=== PATIENT | female | born 1980 | race African-American/Black ===

== ENCOUNTER 2017-07-25 16:28 | Emergency (ER) | payer OTHER ==
[2017-07-25 16:37] VITALS: BP 123/76; PULSE 80; TEMP 98.1; BMI 40.3
[2017-07-25] MEDS ORDERED: KETOROLAC TROMETHAMINE 15 MG/ML VIAL IVPUSH ONE (17:38)
--- NOTE | 2017-07-25 17:56 | PDOC ---
Attending Attestation - Resident Resident Name: Jeff Szymanski - ED Attending Attestation I have performed the following: I have examined & evaluated the patient, The case was reviewed & discussed with the resident, I agree w/resident's findings & plan, Exceptions are as noted - HPI HPI: 07/25/17 17:55 Chronic Worsening Knee Pain - Physicial Exam PE: 07/25/17 17:55 VSS/NAD, Some Swelling - Medical Decision Making 07/25/17 17:[address] Szymanski's Assessment and Plan
[2017-07-25] MEDS ORDERED: KETOROLAC TROMETHAMINE 30 MG/1 ML VIAL ONE (18:03)
[2017-07-25 18:13] LABS: BASOPHIL 2.5 % (0-2.0); EOSINOPHIL 2.1 % (0-4.5); MCH 25.4 pg (25.7-33.7); MCHC 32.4 g/dl (32.0-36.0); MEAN CELL VOLUME 78.2 fl (80-96); NEUTROPHILS 51.7 % (42.8-82.8); PLATELET COUNT 269 K/MM3 (134-434); RDW 13.1 % (11.6-15.6); WHITE BLOOD COUNT 7.9 K/mm3 (4.0-10.8)
[2017-07-25 18:20] LABS: ALBUMIN 3.9 g/dl (3.5-5.0); ALK PHOS 56 U/L (32-92); ANION GAP 6 (8-16); BILIRUBIN,TOTAL 0.5 mg/dl (0.2-1.0); CALCIUM 9.2 mg/dl (8.4-10.2); CO2 24 mmol/L (22-28); CREATININE 0.8 mg/dl (0.6-1.3); GLUCOSE,RANDOM 93 mg/dl (74-106); SGOT/AST 20 U/L (10-42); SGPT/ALT 17 U/L (10-40); TOT PROT 7.2 g/dl (6.4-8.3); URIC ACID 4.5 mg/dl (2.6-7.2)
[2017-07-25 18:25] LABS: PH,URINE 5.5 (4.5-8); URINE APPEARANCE Clear; URINE BILIRUBIN Negative (NEGATIVE); URINE BLOOD Negative (NEGATIVE); URINE GLUCOSE (UA) Negative (NEGATIVE); URINE KETONE Negative (NEGATIVE); URINE LEUK ESTERASE Negative (NEGATIVE); URINE NITRITE Negative (NEGATIVE); URINE PROTEIN Negative (NEGATIVE); URINE UROBILINOGEN 0.2 (0.2-1.0)
[2017-07-25 18:26] LABS: URINE COLOR YELLOW
--- NOTE | 2017-07-25 18:41 | PDOC ---
History of Present Illness - General Chief Complaint: Pain Stated Complaint: LEFT KNEE PAIN Time Seen by Provider: 07/25/17 17:36 History Source: Patient Exam Limitations: No Limitations - History of Present Illness Initial Comments: 07/25/17 19:33 36F with no pmh and year long Left Knee pain and on/off swelling presents with persistent knee pain. Swelling episode last Monday. Has appointment with Dr. Marrufo on this coming Monday but pain upon weight bearing was too excruciating. Patient is 07/04 radiates up the back of her thigh and feels likes burning. Started a year ago when she fell a pop. Has pop + pain episode every month or so. Received an X-ray last month that was negative for fracture. No other complains. Ice and motrin seems to help reduce the swelling. No recent travel or long immobilizations. Not taking control. No history of DVT. 07/25/17 19:38 07/25/17 19:38 Leg not currently swollen Past History - Past Medical History Allergies/Adverse Reactions: Allergies Allergy/AdvReac Type Severity Reaction Status Date / Time nickel Allergy Verified 07/25/17 16:30 Home Medications: Ambulatory Orders Ascorbate Calcium [Vitamin C] 500 mg PO ASDIR 07/25/17 Biotin/Calcium Carbonate [Biotin 800 Mcg Tablet] 1 each PO DAILY 07/25/17 Calcium Carbonate [Calcium] 500 mg PO ASDIR 07/25/17 Multivitamins [Tab-A-Vit -] 1 tab PO DAILY 07/25/17 COPD: No - Surgical History Abdominal Surgery: (LIPOSUCTION) - Suicide/Smoking/Psychosocial Hx Smoking History: Never smoked Have you smoked in the past 12 months: No Hx Alcohol Use: No Drug/Substance Use Hx: No Substance Use Type: None Review of Systems - Review of Systems Able to Perform ROS?: Yes Is the patient limited Divehi proficient: No Constitutional: Yes: Symptoms Reported. No: Chills, Diaphoresis, Fever HEENTM: No: Symptoms Reported Respiratory: No: Cough, Orthopnea, Shortness of Breath Cardiac (ROS): No: Chest Pain, Edema, Irregular Heart Rate ABD/GI: No: Blood Streaked Bowels, Nausea, Poor Appetite Musculoskeletal: Yes: See HPI Neurological: No: Headache, Numbness, Paresthesia, Seizure, Tingling, Tremors, Dizziness Psychiatric: No: Anxiety, Depression, Frequent Crying Endocrine: No: Symptoms Reported All Other Systems: Reviewed and Negative *Physical Exam - Vital Signs Last Vital Signs Temp Pulse Resp BP Pulse Ox 98.1 F 80 18 123/76 99 07/25/17 16:28 07/25/17 16:28 07/25/17 16:28 07/25/17 16:28 07/25/17 16:28 - Physical Exam General Appearance: Yes: Nourished, Appropriately Dressed, Obese HEENT: positive: EOMI, WOLF, Normal ENT Inspection Neck: negative: Tender Respiratory/Chest: positive: Lungs Clear, Normal Breath Sounds. negative: Chest Tender Cardiovascular: positive: Regular Rhythm, Regular Rate, S1, S2 Gastrointestinal/Abdominal: positive: Normal Bowel Sounds, Protuberent. negative: Tender, Guarding, Tenderness, Spleenomegaly Musculoskeletal: positive: Decreased Range of Motion (of left knee. No swelling , no effusion, patella not mobile. Neatibve drawer signs. Pain increased during external rotation) Extremity: positive: Normal Capillary Refill, Normal Inspection, Normal Range of Motion. negative: Pedal Edema, Swelling Neurologic: positive: supervisor advice II-XII NML intact, Fully Oriented, Alert, Normal Mood/ Affect ED Treatment Course - LABORATORY CBC & Chemistry Diagram: 07/25/17 17:50 07/25/17 17:50 - ADDITIONAL ORDERS Additional order review: Laboratory Results 07/25/17 07/25/17 18:10 17:50 Sodium 133 L Potassium 4.3 Chloride 103 Carbon Dioxide 24 Anion Gap 6 L BUN 21 H Creatinine 0.8 Creat Clearance w eGFR > 60 Random Glucose 93 Uric Acid 4.5 Calcium 9.2 Total Bilirubin 0.5 AST 20 ALT 17 Alkaline Phosphatase 56 Total Protein 7.2 Albumin 3.9 Urine Color Yellow Urine Appearance Clear Urine pH 5.5 Ur Specific [place] 1.025 Urine Protein Negative Urine Glucose (UA) Negative Urine Ketones Negative Urine Blood Negative Urine Nitrite Negative Urine Bilirubin Negative Urine Urobilinogen 0.2 Ur Leukocyte Esterase Negative Urine HCG, Qual Negative 07/25/17 17:50 RBC 5.05 MCV 78.2 L MCHC 32.4 RDW 13.1 MPV 9.0 Neutrophils % 51.7 Lymphocytes % 36.3 Monocytes % 7.4 Eosinophils % 2.1 Basophils % 2.5 H - Medications Given in the ED: ED Medications Discontinued Medications Generic Name Dose Route Start Last Admin Trade Name Harleen PRN Reason Stop Dose Admin Ketorolac Tromethamine 15 mg 07/25/17 17:38 07/25/17 18:18 Toradol Injection - IVPUSH 07/25/17 17:39 15 mg ONCE ONE Administration Medical Decision Making - Medical Decision Making 07/25/17 19:43 36F present with chronic left knee pain. Patient to get MRI with dr. Marrufo on Monday. 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 ,. 07/25/17 19:45 D/C Told to come back to ED for any new, worsening or concerning symptoms. *DC/Admit/Observation/Transfer Diagnosis at time of Disposition: Knee pain, acute - Discharge Dispostion Disposition: HOME Condition at time of disposition: Stable Admit: No - Referrals Referrals: Samuel Marrufo MD [Staff Physician] - - Patient Instructions Printed Discharge Instructions: How to Use Crutches Additional Instructions: Follow up with apointment with dr. Marrufo. Come back to Ed for any new, concerning or worsening symptoms. Use crutches to avoid weight on left knee, motrin and ie to reduce occasional inflammation.
== END 2017-07-25 19:33 | disposition home or self-care (01) ==
LOC: FER 16:28
PROC: 3E0333Z Introduction of Anti-inflammatory into Peripheral Vein, Percutaneous Approach (ICD-10-PCS; principal; 2017-07-25)
DX: M25.562 Pain in left knee (principal)
CPT/HCPCS: 36415; 80053; 81003; 84550; 84703; 85025; 99283-25

== ENCOUNTER 2018-07-26 11:50 | Day surgery (SDC) | payer BC, OTHER ==
[2018-07-19 12:39] VITALS: BMI 34.9
[2018-07-26] MEDS ORDERED: MIDAZOLAM HCL 2 MG/2 ML SINGLE DOSE VIAL ONE (14:58)
[2018-07-26] MEDS ORDERED: BUPIVACAINE HCL/PF 2.5 MG/ML - 30 ML VIAL IJ ONE (15:11)
[2018-07-26] MEDS ORDERED: DEXAMETHASONE SOD PHOSPHATE 4 MG/1 ML VIAL ONE (15:23)
[2018-07-26] MEDS ORDERED: ONDANSETRON 4 MG/2 ML VIAL ONE ×2 (15:23→16:26)
[2018-07-26] MEDS ORDERED: ceFAZolin SODIUM 1 GM VIAL ONE (15:23)
--- NOTE | 2018-07-26 15:25 | OP ---
Operative Note - Note: Operative Date: 07/26/18 Pre-Operative Diagnosis: left knee MMT Operation: left knee arthroscopy. partial medial meniscectomy Post-Operative Diagnosis: Same as Pre-op Surgeon: Samuel Marrufo Anesthesiologist/RESIDENTIAL REAL ESTATE AGENT: Fortino Reyes Anesthesia: General Operative Report Dictated: Yes
[2018-07-26] MEDS ORDERED: BUPIVACAINE HCL/PF 0.25% (2.5MG/ML) 10 ML VIAL IJ ONE (15:42)
[2018-07-26] MEDS ORDERED: HYDROmorphone HCL/PF 1 MG/ML AMP ONE (16:03)
[2018-07-26] MEDS ORDERED: ONDANSETRON 4 MG/2 ML VIAL IVPUSH ONE ×2 (16:25)
[2018-07-26] MEDS ORDERED: oxyCODONE HCL 5 MG TABLET PO PRN ×2 (16:51)
[2018-07-26] MEDS ORDERED: PROMETHAZINE HCL 25 MG/1 ML VIAL IVPUSH PRN (16:51)
[2018-07-26] MEDS ORDERED: ONDANSETRON 4 MG/2 ML VIAL IVPUSH PRN (16:51)
[2018-07-26] MEDS ORDERED: oxyCODONE HCL 5 MG TABLET ONE (17:36)
[2018-07-26 17:44] VITALS: TEMP 98.5
[2018-07-26 19:02] VITALS: BP 133/80; PULSE 60
--- NOTE | 2018-08-02 15:34 | OP ---
DATE OF OPERATION: 07/26/2018 PREOPERATIVE DIAGNOSIS: Left knee medial meniscus tear. POSTOPERATIVE DIAGNOSIS: Left knee medial meniscus tear. PROCEDURE: Left knee arthroscopy with partial medial meniscectomy. SURGEON: Samuel Ling MD ANESTHESIA: General. POSTOPERATIVE CONDITION: Stable. COMPLICATIONS: None. INDICATIONS: This is a pleasant, 37-year-old female who has been suffering from medial knee pain. The patient had been treated extensively with nonoperative care and had failed to improve. Given the persistent swelling and pain, we decided to proceed with arthroscopic surgery. Prior to surgery, the risks, benefits, and alternatives were discussed in detail, including bleeding, infection, neurovascular injury, need for further surgery, postoperative pain and stiffness, and progression of osteoarthritis. We discussed medical risks, such as heart attack, stroke, DVT, PE, and . I addressed the patient's questions and concerns. She voiced understanding and elected to proceed. PROCEDURE: The patient was brought to the operating room where general anesthesia was administered. She was placed onto the operating room table in the supine position. The left lower extremity was then prepped and draped in the usual sterile fashion. A preoperative dose of antibiotics was given and the usual timeout procedure was performed. The knee was then marked and the portals were injected subcutaneously with 0.25% Marcaine. A lateral portal was established with an 11-blade. The arthroscope was passed into the knee. A large effusion was drained. Examination of the patellofemoral joint demonstrated [id number] patellar and trochlear degenerative change. Passing the arthroscope into the notch demonstrated intact ACL and PCL. Passing the arthroscope into the medial compartment demonstrated high-grade articular cartilage loss of the femoral condyle diffusely and cuhnrpit-[id number]-nniq-grade cartilage loss on the tibial side. Complex tear was noted of the medial meniscus. A medial portal was now established under spinal needle localization and the medial meniscus was debrided utilizing the meniscal biters and shaver. The arthroscope was passed into the lateral compartment. Here, no meniscal tear was noted. However, there was significant partial-thickness chondral loss on both the femoral and tibial sides. The excess fluid was withdrawn from the joint, at this time. The portals were sutured using 3-0 nylon. Sterile dressings were placed. The patient was extubated and transferred to the recovery room in stable condition. SAMUEL LING M.D. [id number]
== END 2018-07-26 19:02 | disposition home or self-care (01) ==
LOC: FASU 11:50
PROVIDERS: ATTEND Orthopaedic Surgery Sports Medicine
PROC: 0SBD4ZZ Excision of Left Knee Joint, Percutaneous Endoscopic Approach (ICD-10-PCS; principal; 2018-07-26 15:39)
DX: M23.204 Derangement of unspecified medial meniscus due to old tear or injury, left knee (principal)
CPT/HCPCS: 84703; 94760

== ENCOUNTER 2019-10-09 10:16 | Emergency (ER) | payer BC, OTHER ==
--- NOTE | 2019-10-09 10:50 | PDOC ---
History of Present Illness - General Chief Complaint: Cold Symptoms Stated Complaint: FLU COUGH Time Seen by Provider: 10/09/19 10:23 - History of Present Illness Initial Comments: 10/09/19 12:04 Chief complaint: Persistent nonproductive cough HPI: Recently had documented influenza A, completed course of Tamiflu, fever and body aches have resolved but cough and wheezing have persisted, interfering with sleep. Review of systems: No fever/chills, shortness of breath, chest pain, abdominal pain, nausea, vomiting, diarrhea. Remainder of systems reviewed and negative Past medical history: Healthy female, no asthma, diabetes, or other chronic illness Social history: Works as a physical therapy aid in the [employer], denies tobacco alcohol or drugs. Fully active and without disability Family history: Reviewed and noncontributory Physical exam: Alert and oriented well-developed well-nourished no acute distress cheerful and cooperative Afebrile, vital signs normal HEENT normal Neck supple without bruit mass or nodes Chest exam reveals bilateral end expiratory wheezes at both bases posteriorly, symmetric. No rales or rhonchi. No limitation with deep inspiration. No tachypnea dyspnea or other respiratory distress CV S1-S2 normal without murmur rub or gallop pulses full and symmetric. Regular rate. Abdomen benign Extremities no CCE Skin clear, no rash, adequate turgor and wet mucous membranes Impression: Influenza A, recovering, postinfectious bronchospasm, no respiratory distress Plan: Reassure. Cough suppressant and rest. Follow-up primary physician if no improvement. Fully ambulatory in no distress respiratory or otherwise at discharge to follow-up as directed Past History - Past Medical History Allergies/Adverse Reactions: Allergies Allergy/AdvReac Type Severity Reaction Status Date / Time nickel Allergy Verified 10/09/19 10:17 Home Medications: Ambulatory Orders Ascorbate Calcium [Vitamin C] 500 mg PO ASDIR 07/25/17 Biotin/Calcium Carbonate [Biotin 800 Mcg Tablet] 1 each PO DAILY 07/25/17 Calcium Carbonate [Calcium] 500 mg PO ASDIR 07/25/17 Multivitamins [Multivit ([facility] Formulary)] 1 tab PO DAILY 07/25/17 Norethindrone-E.estradiol-Iron [Junel Fe 1 mg-20 Mcg Tablet] 1 each PO DAILY Promethazine HCl/Codeine [Promethazine-Codeine Syrup] 2 tsp PO TID PRN #120 ml MDD 6 10/09/19 Anemia: No Asthma: No Cancer: No Cardiac Disorders: No CVA: No COPD: No CHF: No Dementia: No Diabetes: No GI Disorders: No Disorders: No HTN: No Hypercholesterolemia: No Liver Disease: No Seizures: No Thyroid Disease: No - Surgical History Abdominal Surgery: No Appendectomy: No Cardiac Surgery: No Cholecystectomy: No Lung Surgery: No Neurologic Surgery: No Orthopedic Surgery: No - Psycho Social/Smoking Cessation Hx Smoking Status: No Smoking History: Never smoked Have you smoked in the past 12 months: No Number of Cigarettes Smoked Daily: 0 Information on smoking cessation initiated: No Hx Alcohol Use: No Drug/Substance Use Hx: No Substance Use Type: None Hx Substance Use Treatment: No *Physical Exam - Vital Signs Last Vital Signs Temp Pulse Resp BP Pulse Ox 98.7 F 79 16 129/89 100 10/09/19 10:17 10/09/19 10:17 10/09/19 10:17 10/09/19 10:10/09/19 10:17 Discharge - Discharge Information Problems reviewed: Yes Clinical Impression/Diagnosis: Post-infection bronchospasm Condition: Stable Disposition: HOME - Admission No - Additional Discharge Information Prescriptions: Promethazine HCl/Codeine [Promethazine-Codeine Syrup] 2 tsp PO TID PRN #120 ml MDD 6 PRN Reason: Cough - Follow up/Referral - Patient Discharge Instructions Patient Printed Discharge Instructions: DI for Reactive Airway Disease-Adult - Post Discharge Activity Work/Back to School Note: Back to Work
[2019-10-09 10:55] VITALS: BP 129/89; PULSE 79; TEMP 98.7; BMI 34.4
== END 2019-10-09 10:57 | disposition home or self-care (01) ==
LOC: FER 10:16
DX: J98.01 Acute bronchospasm (principal)
CPT/HCPCS: 99282-25